=== PATIENT | female | born 1940 | race Caucasian/White ===

== ENCOUNTER 2016-07-24 13:53 | Inpatient (IN) ==
[2016-07-24] MEDS ORDERED: Acetaminophen 325 MG TABLET PO PRN (17:15)
[2016-07-24] MEDS ORDERED: Naloxone 0.4 MG/ML INJ IVP PRN (17:15)
[2016-07-24] MEDS ORDERED: Ondansetron 4 MG/2 ML VIAL IVP PRN (17:15)
[2016-07-24] MEDS ORDERED: Haloperidol Lactate 5 MG/ML VIAL IVP PRN (17:24)
--- NOTE | 2016-07-24 17:24 | Internal Med History&Physical ---
Date of Encounter: 07/24/16 Time of Encounter: 17:20 Assessment and Plan (1) Altered mental status Current visit: No Status: Acute Unclear etiology. I think most likely scenario is that she had metabolic derangements (hyponatremia?) from her bowel prep overnight and may have suffered a seizure followed by prolonged delirium. She intermittently is awake and agitated followed by episodes of somnolence. It is difficult to determine what is related to the IV ativan she was given, as this can worsen delirium. Family feels it would be very out of character for her to take any drugs last night. CVA is on the differential, however the waxing and waning symptoms (and reported normal strength and facial symmetry during awake episodes) makes this somewhat less likely, however it is concerning that her speech seems different. 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 - Repeat STAT labs to check electrolytes, bicarb, CK (unknown how long she was down) - Monitor carefully - Haldol for agitation as needed - Consult neurology for assistance in AM - Check drug screen Qualifiers: Altered mental status type: disorientation Qualified Code(s): R41.0 - Disorientation, unspecified (2) Hyponatremia Current visit: Yes Status: Acute Likely secondary to dehydration and bowel prep, unknown baseline Na level. Lowered seizure threshold in patient with likely low seizure threshold. Sodium can be artificially elevated immediately after seizure, so I am concerned her Na may actually be lower than it was initially noted to be (127) at outside ER. - Recheck Na 127 - patient received 1L NS at outside ER - Discussed case with nephrology front end web developer, Dr. Moreno, who recommended 500cc NS bolus followed by 100ccs/hr and Q4H Na checks overnight. - Check urine Na, osmolality, and measured serum osmolality Internal Medicine - H&P: HPI Chief complaint: Seizure like activity, altered mentation Admitted From: Emergency Dept Plans for Post Hospital Care: Home History of present illness: Ms. Aguila is a 75 year old female with history of seizure disorder secondary to traumatic brain injury, not on antiseizure meds, who presented to her local ER this morning after she was found on the floor of her home by her daughter. Her daughter is present at bedside and states that the patient's last known well was yesterday evening around 1730. The patient was taking a colonoscopy prep overnight last night, and her daughter helped her prepare the solution. The patient lives alone and is able to perform all ADLs typically. Her last seizure was approximately two years ago, and her typical seizure consists of tonic clonic activity. This morning when the patient's daughter got to her house to take her to the colonoscopy she found the front door unlocked, which is highly unusual. The patient was found on the floor of her bedroom having paddling hand motions and the daughter thought she was having a seizure. She was unable to respond to the daughter and EMS was called. When EMS arrived the patient yelled at them to "Get out!" and that is all she has said today. The daughter thought the seizure had resolved and she was post ictal so she had EMS leave. One hour later the patient was still nonverbal and had strange movements of her arms, so daughter called EMS to come back and she was taken to the ER for further evaluation. At the local ER ([place]) she was found to have hyponatremia (127) and low bicarb ( 18) with anion gap of 16. Prolactin was not checked. CT of the head was negative for hemorrhage or mass effect. She was reportedly agitated at the ER and was given two doses of IV ativan. On arrival to the obs unit at [facility] the patient was again agitated, climbed out of bed and urinated on the floor. It took three nurses to get her back into bed and then she fell back asleep. Her daughter thinks that she seemed a little more oriented this time when she stood up, but is still not speaking and is very confused. On reevaluation of the patient at 1800 she is awake and mildly agitated, attempting to climb out of bed. She will not follow commands, but is moving all four extremities and is able to make eye contact with me and clearly state "I don't want you." When I asked her if she would like me to leave she stated, "Yes." Past Med Surg Social Fam HX - Past Medical History Medical history: seizures, other Psychiatric history: no psych history - Past Surgical History Surgical History: hysterectomy, orthopedic, other - Social History Smoking Status: Never smoker Smokeless Tobacco Status: No Alcohol use: none Drug use: none - Family History Mother Living Status: Cause of : CHF Hx Family Cardiac Disorders: Yes Hx Family Endocrine Disorder: Yes (DM type 1) Father Living Status: Cause of : CHF Hx Family Cardiac Disorders: Yes Hx Family Endocrine Disorder: Yes (DM) Internal Medicine - H&P: Meds Beta-Carotene(A)-C,E/Selenium [Antioxidant Softgels] 1 cap PO DAILY 07/22/16 [ History] Cyanocobalamin (Vitamin B-12) [Vitamin B12] 1,000 mcg PO DAILY 07/22/16 [History ] Multivitamin [Multivitamins] 1 each PO DAILY 07/22/16 [History] Vitamin E 100 unit PO DAILY 07/22/16 [History] Allergies adhesive tape Allergy (Verified 07/22/16 14:18) Rash levetiracetam [From Keppra] Allergy (Verified 07/22/16 14:18) Blurry Vision milk Allergy (Verified 07/22/16 14:18) See Comments unknown reaction All Systems PM: A 10-system review of systems was performed and is negative for pertinent findings except as documented above in the HPI. - Constitutional Vitals: Temp Pulse Resp BP Pulse Ox 98.0 F 67 20 117/57 95 07/24/16 17:12 07/24/16 17:12 07/24/16 17:12 07/24/16 17:12 07/24/16 17:12 Exam: Patient somnolent, does not respond to voice commands. - Head Head exam: Present: atraumatic Internal Med - H&P Results - Labs CBC & Chem 7: 07/24/16 17:42 07/24/16 17:42
[2016-07-24 17:56] LABS: Basophils % 0.1 %; Hematocrit 36.6 % (35.3-44.9); Hemoglobin 12.6 g/dL (11.5-15.4); Immature Granulocytes % 0.6 % (0-4); Immature Platelets 1.5 % (1.1-6.1); Lymphocytes % 10.6 %; Mean Corpuscular HGB Conc 34.4 g/dL (31.6-35.5); Mean Corpuscular Hemoglobin 31.2 pg (28.0-33.3); Mean Corpuscular Volume 90.6 fL (83.0-100.0); Mean Platelet Volume 8.6 fL (9.4-12.4); Monocytes % 7.7 %; Platelet Count 271 K/mcL (140-400); Red Blood Count 4.04 M/mcL (3.82-4.97); Red Cell Distribution Width 12.6 % (11.5-14.5)
[2016-07-24 17:57] LABS: Lymphocytes # 1.3 K/mcL (0.6-4.6); Neutrophils # 10.2 K/mcL (1.6-8.9)
[2016-07-24 18:00] LABS: INR 1.1; Prothrombin Time 12.2 Seconds (9.4-12.1)
[2016-07-24 18:11] LABS: Alanine Aminotransferase 20 Units/L (0-55); Albumin 3.4 g/dL (3.5-5.0); Albumin/Globulin Ratio 1.3 (1.1-2.2); Alkaline Phosphatase 50 Units/L (38-126); Aspartate Amino Transferase 37 Units/L (5-34); BUN/Creatinine Ratio 10 (6-26); Bilirubin,Total 1.4 mg/dL (0.2-1.2); Blood Urea Nitrogen 6 mg/dL (7-20); Calcium 8.1 mg/dL (8.6-10.8); Carbon Dioxide 19 mEq/L (19-29); Chloride 98 mEq/L (98-109); Creatine Kinase 1075 Units/L (29-168); Globulin 2.7 g/dL (2.4-3.5); Glucose 100 mg/dL (70-99); Osmolality,Calculated 262 (280-300); Potassium 4.1 mEq/L (3.5-4.5); Sodium 127 mEq/L (136-145); Total Protein 6.1 g/dL (6.0-8.3); eGFR For African Americans > 60 (> 60); eGFR For Non-African Americans > 60 (> 60)
[2016-07-24] MEDS: 0.9 % Sodium Chloride 1,000 ML IVC SCH (18:18)
[2016-07-24] MEDS: Haloperidol Lactate 5 MG/ML VIAL IVP PRN (18:19)
[2016-07-24] MEDS ORDERED: 0.9 % Sodium Chloride 500 ML IVC ONE (19:31)
[2016-07-25] MEDS: 0.9 % Sodium Chloride 1,000 ML IVC SCH ×2 (05:10→15:42)
[2016-07-25 06:45] LABS: Hematocrit 35.4 % (35.3-44.9); Hemoglobin 12.3 g/dL (11.5-15.4); Mean Corpuscular HGB Conc 34.7 g/dL (31.6-35.5); Mean Corpuscular Hemoglobin 31.5 pg (28.0-33.3); Mean Corpuscular Volume 90.5 fL (83.0-100.0); Mean Platelet Volume 8.7 fL (9.4-12.4); Platelet Count 205 K/mcL (140-400); Red Blood Count 3.91 M/mcL (3.82-4.97); Red Cell Distribution Width 12.8 % (11.5-14.5)
[2016-07-25 06:51] LABS: BUN/Creatinine Ratio 9 (6-26); Calcium 7.8 mg/dL (8.6-10.8); Carbon Dioxide 17 mEq/L (19-29); Chloride 102 mEq/L (98-109); Glucose 88 mg/dL (70-99); Osmolality,Calculated 265 (280-300); Potassium 3.4 mEq/L (3.5-4.5); Sodium 129 mEq/L (136-145); eGFR For African Americans > 60 (> 60); eGFR For Non-African Americans > 60 (> 60)
[2016-07-25 06:52] LABS: Blood Urea Nitrogen 5 mg/dL (7-20)
--- NOTE | 2016-07-25 11:45 | Neurology - Consult Note ---
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 Has previous history of cerebral hemorrhage which may be related with increased risk of partial epilepsy. Has not been compliant with antiepileptic therapy due to concerns of cost. Will start her on Dilantin 500mg loading dose followed by dilantin 200mg daily with goal of dilantin level of 5- 10. Patient is still reluctant to take seizure meds and is expect not to be compliant with seizure medication. Does have other risk factor for TIA or encephalopathy so continue medical and supportive care and complete Carotid artery duplex may be useful. History of Present Illness Chief complaint: altered mental status HPI: Ms. Aguila is a 75 year old female with known seizure disorder noncompliant with antiepileptic therapy, history of cerebral hemorrhage who presented to ER with altered mental status. No witnessed seizures though. Patient known to me and has seen me few times in clinic for seizures. Has had few witnessed GTC by her daughter during 2012. Was on Keppra initially was doing good and then changed to dilantin (2013) due to inability to afford keppra. Started her on Dilantin 200mg daily during 2013. Never came back for follow up. Apparently discontinued medication on her own due to concerns of cost. has had EEG and MRI of brain during 2013. Has had episodic confusions occasional GTC as well. CT of head showed no acute intracranial abnormality Past Med Surg Social Fam HX - Past Medical History Medical history: seizures, other Psychiatric history: no psych history - Past Surgical History Surgical History: hysterectomy, orthopedic, other - Social History Smoking Status: Never smoker Smokeless Tobacco Status: No Alcohol use: none Drug use: none - Family History Mother Living Status: Cause of : CHF Hx Family Cardiac Disorders: Yes Hx Family Endocrine Disorder: Yes (DM type 1) Father Living Status: Cause of : CHF Hx Family Cardiac Disorders: Yes Hx Family Endocrine Disorder: Yes (DM) Medications and Allergies Beta-Carotene(A)-C,E/Selenium [Antioxidant Softgels] 1 cap PO DAILY 07/22/16 [ History] Cyanocobalamin (Vitamin B-12) [Vitamin B12] 1,000 mcg PO DAILY 07/22/16 [History ] Multivitamin [Multivitamins] 1 each PO DAILY 07/22/16 [History] Vitamin E 100 unit PO DAILY 07/22/16 [History] Allergies adhesive tape Allergy (Verified 07/22/16 14:18) Rash levetiracetam [From Keppra] Allergy (Verified 07/22/16 14:18) Blurry Vision milk Allergy (Verified 07/22/16 14:18) See Comments unknown reaction All Systems: A 10-system review of systems was performed and is negative for pertinent findings except as documented above in the HPI. Physical Examination - Vital Signs Vital Signs: Initial Vital Signs Temp Pulse Resp BP Pulse Ox 98.0 F 67 20 117/57 95 07/24/16 17:12 07/24/16 17:12 07/24/16 17:12 07/24/16 17:12 07/24/16 17:12 - Constitutional General appearance: comfortable - Neurologic Sensorimotor examination: intact Detailed motor examination: grossly full strength in all extremities Motor examination - right side: 5/5: deltoids, biceps, triceps, wrist flexion, wrist extension, template fitter, hip flexors, tibialis Anterior, quadriceps, toe extension (EHL), plantarflexion Motor examination - left side: 5/5: deltoids, biceps, triceps, wrist flexion, wrist extension, hip flexors, template fitter, quadriceps, tibialis Anterior, toe extension (EHL), plantarflexion Detailed sensory examination: intact Reflex and gait examination: intact Reflexes: Biceps: 1+, Triceps: 1+, Brachioradialis: 1+, Patella: 1+, Achilles: 1 + Mental Status Examination: awake, alert, oriented to person, oriented to place, oriented to time, follows commands appropriately, answers questions appropriately, no agnosia, no aphasia, no aproxia Cranial nerve examination: PERRL, EOMI, visual bowles intact, corneal reflexes brisk symmetrically, sensory to face intact, mastication intact, no facial asymmetry is present, no dysarthria, hearing is intact symmetrically, soft palate elevates bilaterally upon phonation, gag reflex intact, flexes SCM and trapezius muscles symmetrically with full power, tongue protrudes midline, no atrophy or facial fasiculations present Results - Laboratory Findings CBC and BMP: 07/25/16 06:18 07/25/16 06:18 Abnormal lab findings: Abnormal lab results MPV 8.7 fL (9.4-12.4) L 07/25/16 06:18 Neutrophils # 10.2 K/mcL (1.6-8.9) H 07/24/16 17:42 PT 12.2 Seconds (9.4-12.1) H 07/24/16 17:42 Sodium 129 mEq/L (136-145) L 07/25/16 06:18 Potassium 3.4 mEq/L (3.5-4.5) L 07/25/16 06:18 Carbon Dioxide 17 mEq/L (19-29) L 07/25/16 06:18 BUN 5 mg/dL (7-20) L 07/25/16 06:18 Creatinine 0.56 mg/dL (0.57-1.11) L 07/25/16 06:18 Serum Osmolality 270 mOsm/kg (280-300) L 07/24/16 19:12 Calculated Osmolality 265 (280-300) L 07/25/16 06:18 Calcium 7.8 mg/dL (8.6-10.8) L 07/25/16 06:18 Total Bilirubin 1.4 mg/dL (0.2-1.2) H 07/24/16 17:42 AST 37 Units/L (5-34) H 07/24/16 17:42 Creatine Kinase 1021 Units/L (29-168) H 07/25/16 06:18 Albumin 3.4 g/dL (3.5-5.0) L 07/24/16 17:42 Consult Discharge Plan - Plan Referrals: Ariel Reynolds MD [Partnered Physician] - NO,PCP [Primary Care Provider] -
--- NOTE | 2016-07-25 14:17 | Nephrology Consult Note ---
Date of Encounter: 07/25/16 Time of Encounter: 14:00 Assessment and Plan (1) Hyponatremia Current Visit: Yes Status: Resolved Suspect some chronicity with an acute component due to bowel prep Encouraged using slat with meals Continue saline for today Awaiting urine osmolality as well as sodium level (2) Altered mental status Current Visit: Yes Status: Acute Qualifiers: Altered mental status type: delirium Qualified Code(s): R41.0 - Disorientation, unspecified History of Present Illness - Reason for Consult Consult date: 07/25/16 hyponatremia Requesting physician: Chrystal Arnold - History of Present Illness 75 y o female with PMH of known seizure d/o with traumatic brain off medications presenting with altered mental status along with witnessed seizure after being down by daughter while undergoing bowel prep for pending colonoscopy. Per daughter does not eat much overall and hates sodium. sodium level noted at 127, no baseline available. No diuretics use. No nausea or vomiting just diarrhea from bowel prep. She is now up and alert and back to baseline. Past Med Surg Social Fam HX - Past Medical History Medical history: seizures, other Psychiatric history: no psych history - Past Surgical History Surgical History: hysterectomy, orthopedic, other - Social History Smoking Status: Never smoker Smokeless Tobacco Status: No Alcohol use: none Drug use: none - Family History Mother Living Status: Cause of : CHF Hx Family Cardiac Disorders: Yes Hx Family Endocrine Disorder: Yes (DM type 1) Father Living Status: Cause of : CHF Hx Family Cardiac Disorders: Yes Hx Family Endocrine Disorder: Yes (DM) Medications and Allergies Beta-Carotene(A)-C,E/Selenium [Antioxidant Softgels] 1 cap PO DAILY 07/22/16 [ History] Cyanocobalamin (Vitamin B-12) [Vitamin B12] 1,000 mcg PO DAILY 07/22/16 [History ] Multivitamin [Multivitamins] 1 each PO DAILY 07/22/16 [History] Vitamin E 100 unit PO DAILY 07/22/16 [History] Allergies adhesive tape Allergy (Verified 07/22/16 14:18) Rash levetiracetam [From Keppra] Allergy (Verified 07/22/16 14:18) Blurry Vision milk Allergy (Verified 07/22/16 14:18) See Comments unknown reaction Review of Systems All Systems: reviewed and no additional remarkable complaints except as stated ( 10 systems reviewed) Exam - Vital Signs Vital signs: Initial Vital Signs Temp Pulse Resp BP Pulse Ox 98.0 F 67 20 117/57 95 07/24/16 17:12 07/24/16 17:12 07/24/16 17:12 07/24/16 17:12 07/24/16 17:12 Vital Signs - Last 8 Hours Temp Pulse Resp BP Pulse Ox 07/25/16 11:12 98.2 F 60 18 156/80 98 07/25/16 10:47 94 07/25/16 07:29 98.3 F 66 18 162/82 92 Intake and Output 07/24/16 07/25/16 07/25/16 23:59 07:59 15:59 Intake Total 1000 / 1000 Balance 1000 / 1000 Intake: IV Fluids 1000 / 1000 0.9 % Sodium Chloride 1, 1000 / 1000 000 ML @ 100 mls/hr IVC . Q10H WING Rx#:[id number] Other: Stool Size Small Stool Consistency loose liquid Stool Color Brown Green # Voids 1 # Urine Diapers 1 1 # Bowel Movements 1 Weight 65.771 kg Blood Glucose* 82 97 - General Appearance Exam: NAD EENT: ATNC, mucous membranes dry Neck: no JVD, supple Respiratory: clear (ant bilat) Cardiology: no edema, normal S1, normal S2 Gastrointestinal: no tenderness, no guarding Integumentary: warm and dry Neurologic: no focal deficit Musculoskeletal: no deformities Psychiatric: mood/affect appropriate Results - Lab Results 07/25/16 06:18 07/26/16 05:17 Most recent lab results Calcium 7.8 mg/dL (8.6-10.8) L 07/25/16 06:18 Consult Discharge Plan - Plan Referrals: Ariel Reynolds MD [Partnered Physician] - NO,PCP [Primary Care Provider] -
--- NOTE | 2016-07-25 16:13 | Internal Med Progress Note ---
Date of Encounter: 07/25/16 Time of Encounter: 12:00 - Assessment and plan (1) Altered mental status Current Visit: Yes Status: Acute Assessment and plan: This is improving. Patient is clinically feeling better. Most likely due to underlying dehydration and possible acute on chronic hyponatremia. We will continue to monitor her condition in the hospital. If she continues to improve , she may be ready for discharge tomorrow. Will attempt to obtain a urine sample for analysis. CK levels trending downwards. Qualifiers: Altered mental status type: disorientation Qualified Code(s): R41.0 - Disorientation, unspecified (2) Essential hypertension Current Visit: Yes Status: Acute Assessment and plan: Patient having elevated blood pressure. No previous diagnosis of hypertension. Will monitor blood pressure for now and use hydralazine to control blood pressure of systolic greater than 160 mmHg. If remains persistently elevated, will start on antihypertensive regimen. (3) Hyponatremia Current Visit: Yes Status: Acute Assessment and plan: Patient may have chronic hyponatremia. Sodium levels have not significantly improved despite IV hydration. Nephrology following. (4) Seizure disorder Current Visit: Yes Status: Acute Assessment and plan: Neurology consult appreciated. Started on Dilantin. Will continue. No new episodes of seizures noted. - Subjective Interval history: patient is awake and alert. Feels better today. Denies any abdominal pain. No nausea or vomiting. Continuing to have some diarrhea. No new episodes of seizures - Constitutional Vitals: Temp Pulse Resp BP Pulse Ox 98.2 F 60 18 156/80 98 07/25/16 11:12 07/25/16 11:12 07/25/16 11:12 07/25/16 11:12 07/25/16 11:12 General appearance: Present: cooperative, A&O X 3, answers questions appropriately - Respiratory Respiratory exam: Present: CTAB. Absent: accessory muscle use, rales, rhonchi, wheezes - Cardiovascular Cardiovascular exam: Present: RRR, +S1, +S2. Absent: diastolic murmur, gallop, rubs, systolic murmur - GI/Abdominal GI/Abdominal exam: Present: normal bowel sounds, soft, no peritoneal signs. Absent: distended, tenderness - Neurological Exam Neurological exam: Present: alert, oriented X3, no focal deficits. Absent: facial droop, speech deficit - Psychiatric Psychiatric exam: Present: flat affect - Skin Skin exam: Present: dry, intact Internal Medicine: Result - Labs CBC & Chem 7: 07/25/16 06:18 07/25/16 06:18 Labs: Short CBC 07/24/16 07/25/16 Range/Units 17:42 06:18 WBC 12.6 H 10.0 (4.3-11.1) K/mcL Hgb 12.6 12.3 (11.5-15.4) g/dL Hct 36.6 35.4 (35.3-44.9) % Plt Count 271 205 (140-400) K/mcL Neutrophils # 10.2 H (1.6-8.9) K/mcL BMP 07/24/16 07/24/16 07/25/16 17:42 23:44 01:51 Sodium 127 L 127 L 125 L Potassium 4.1 Chloride 98 Carbon Dioxide 19 BUN 6 L Creatinine 0.63 Glucose 100 H Calcium 8.1 L 07/25/16 07/25/16 06:18 06:18 Sodium 129 L 128 L Potassium 3.4 L Chloride 102 Carbon Dioxide 17 L BUN 5 L Creatinine 0.56 L Glucose 88 Calcium 7.8 L Cardiac Enzymes 07/24/16 07/24/16 07/25/16 Range/Units 17:42 23:44 06:18 Troponin I 0.00 0.01 0.01 (0-0.03) ng/mL Liver Function 07/24/16 Range/Units 17:42 Total Bilirubin 1.4 H (0.2-1.2) mg/dL AST 37 H (5-34) Units/L ALT 20 (0-55) Units/L Alkaline Phosphatase 50 (38-126) Units/L Albumin 3.4 L (3.5-5.0) g/dL - ABG Interpretation ABG results: PT/INR, D-dimer PT 12.2 Seconds (9.4-12.1) H 07/24/16 17:42 Consult Discharge Plan - Plan Referrals: Ariel Reynolds MD [Partnered Physician] - NO,PCP [Primary Care Provider] - - Attending Attestation This document has been at least partially created by [employer] recognition technology by Dr. Blanco. Errors in grammar, wording or other phrases may exist. If errors are found after the documentation is signed, they will be addressed individually in the addendum section of this document when appropriate.
[2016-07-25] MEDS ORDERED: 0.9 % Sodium Chloride w KCl 20 MEQ/1,000 ML MLS IVC SCH (16:30)
[2016-07-25 23:45] LABS: Bilirubin,Urine Negative (Negative); Blood,Urine Negative (Negative); Clarity,Urine Clear (Clear); Color,Urine Yellow (Yellow); Glucose,Urine (UA) Normal (Normal); Ketones,Urine Negative (Negative); Leukocyte Esterase,Urine Small (Negative); Nitrite,Urine Negative (Negative); Protein,Urine Negative (Neg-Trace); Specific Gravity,Urine 1.007 (1.010-1.025); Urobilinogen,Urine Normal (Normal)
[2016-07-25 23:47] LABS: Bacteria,Urine Moderate per hpf (None-Few); Hyaline Casts,Urine None Seen per lpf (None-Few); RBC,Urine 0-3 per hpf (0-3); Squamous Epithelial Cell,Urine Many per lpf (None-Few)
[2016-07-26 05:38] LABS: BUN/Creatinine Ratio 10 (6-26); Blood Urea Nitrogen 6 mg/dL (7-20); Carbon Dioxide 19 mEq/L (19-29); Chloride 107 mEq/L (98-109); Creatine Kinase 1097 Units/L (29-168); Glucose 134 mg/dL (70-99); Osmolality,Calculated 286 (280-300); Potassium 3.7 mEq/L (3.5-4.5); eGFR For African Americans > 60 (> 60); eGFR For Non-African Americans > 60 (> 60)
[2016-07-26 05:40] LABS: Sodium 138 mEq/L (136-145)
[2016-07-26] MEDS ORDERED: Haloperidol Lactate 5 MG/ML VIAL ONE ×2 (06:45→10:11)
[2016-07-26] MEDS: Haloperidol Lactate 5 MG/ML VIAL IVP PRN (10:16)
[2016-07-26] MEDS ORDERED: *HR* LORazepam 2 MG/ML VIAL IVP ONE (11:45)
[2016-07-26] MEDS ORDERED: Water for inj. (sterile) 10 ML IV ONE (11:56)
--- NOTE | 2016-07-26 12:20 | Internal Med Progress Note ---
Date of Encounter: 07/26/16 Time of Encounter: 09:50 - Assessment and plan (1) Altered mental status Current Visit: Yes Status: Acute Assessment and plan: Overall this seems to be getting better but patient is having intermittent episodes of delirium. Urine analysis shows possible acute UTI. Will treat with Macrodantin. This could also be contributing to the patient's condition. We will continue to monitor for now Qualifiers: Altered mental status type: delirium Qualified Code(s): R41.0 - Disorientation, unspecified (2) Essential hypertension Current Visit: Yes Status: Chronic Assessment and plan: Patient's blood pressure persistently elevated. Will start patient on carvedilol. Continue to monitor blood pressure closely. Also has hydralazine intravenously as needed. (3) Hyponatremia Current Visit: Yes Status: Resolved (4) Seizure disorder Current Visit: Yes Status: Acute Assessment and plan: On Dilantin. No new episodes of seizures. - Subjective Interval history: Saw patient this morning. She was awake alert and oriented. Tolerating diet well. Did not complain of anything. However patient has been having intermittent episodes of agitation. - Constitutional Vitals: Temp Pulse Resp BP Pulse Ox 98.2 F 84 16 158/76 95 07/26/16 07:58 07/26/16 07:58 07/26/16 07:58 07/26/16 07:58 07/26/16 07:58 General appearance: Present: cooperative, A&O X 3, answers questions appropriately - Respiratory Respiratory exam: Present: CTAB. Absent: accessory muscle use, rales, rhonchi, wheezes - Cardiovascular Cardiovascular exam: Present: RRR, +S1, +S2. Absent: diastolic murmur, gallop, rubs, systolic murmur - GI/Abdominal GI/Abdominal exam: Present: normal bowel sounds, soft, no peritoneal signs. Absent: distended, tenderness - Extremities Exam Extremities exam: Present: warm, radial pulses palpable and symetrical. Absent : calf tenderness, cyanotic, pedal edema - Neurological Exam Neurological exam: Present: alert, CN II-XII intact, oriented X3, no focal deficits. Absent: facial droop, speech deficit Internal Medicine: Result - Labs CBC & Chem 7: 07/25/16 06:18 07/26/16 05:17 Labs: BMP 07/26/16 05:17 Sodium 138 D Potassium 3.7 Chloride 107 Carbon Dioxide 19 BUN 6 L Creatinine 0.61 Glucose 134 H Calcium 9.0 D Urine 07/25/16 Range/Units 23:30 Urine Color Yellow (Yellow) Urine Clarity Clear (Clear) Urine pH 7.0 (5.0-8.0) pH Units Ur Specific [place] 1.007 L (1.010-1.025) Urine Protein Negative (Neg-Trace) mg/dL Urine Glucose (UA) Normal (Normal) mg/dL - ABG Interpretation ABG results: PT/INR, D-dimer PT 12.2 Seconds (9.4-12.1) H 07/24/16 17:42 Consult Discharge Plan - Plan Referrals: Ariel Reynolds MD [Partnered Physician] - NO,PCP [Primary Care Provider] - - Attending Attestation This document has been at least partially created by [employer] recognition technology by Dr. Blanco. Errors in grammar, wording or other phrases may exist. If errors are found after the documentation is signed, they will be addressed individually in the addendum section of this document when appropriate.
--- NOTE | 2016-07-26 13:37 | Neurology Progress Note ---
Date of Encounter: 07/26/16 Time of Encounter: 13:34 Assessment and Plan (1) Seizure disorder Current Visit: Yes Status: Acute non-compliant with antiepileptic therapy. Will likely remain non-compliant. Will keep her on dilanitn 100mg bid. Goal of dilantin level 5-10. Does have baseline oppositional behavioral issue as well as baseline cognitive impairment. Patient lives alone and may benefit from assisted living. Please continue medical and supportive care. Subjective Principal diagnosis: altered mental status and possible seizure Interval history: patient seen and examined. Patient is hypersomnolence but appears to be resisting waking up. No recurrent seizures. Daughter at bed side and provided history of her seizures. Since last seen in my office 2014, patient had another convulsion type of seizure but she has remained non-compliant with any type of medications. Also has oppositional behavioral spells. May have baseline cognitive impairment. Is on dilantin 100mg bid. Patient appears sleeping but when i tried to wake her up she screamed but still remained still and kept her eyes closed. Objective - Constitutional Vitals: Temp Pulse Resp BP Pulse Ox 98.2 F 84 16 158/76 95 07/26/16 07:58 07/26/16 07:58 07/26/16 07:58 07/26/16 07:58 07/26/16 07:58 - Neurological Exam Sensorimotor examination: Present: intact Motor Examination: Present: grossly full strength in all extremities Motor examination - left side: 5/5: deltoids, biceps, triceps, wrist flexion, wrist extension, hip flexors, associate accountant, quadriceps, tibialis Anterior, toe extension (EHL), plantarflexion Sensation intact: Present: intact Reflex and gait examination: intact Mental Status Examination: Present: awake, alert, oriented to person, oriented to place, oriented to time, follows commands appropriately, answers questions appropriately, no agnosia, no aphasia, no aproxia Cranial nerve examination: Present: PERRL, EOMI, visual bowles intact, corneal reflexes brisk symmetrically, sensory to face intact, mastication intact, no facial asymmetry is present, no dysarthria, hearing is intact symmetrically, soft palate elevates bilaterally upon phonation, gag reflex intact, flexes SCM and trapezius muscles symmetrically with full power, tongue protrudes midline, no atrophy or facial fasiculations present Results - Laboratory Findings CBC and BMP: 07/25/16 06:18 07/26/16 05:17 Abnormal lab findings: Abnormal lab results MPV 8.7 fL (9.4-12.4) L 07/25/16 06:18 Neutrophils # 10.2 K/mcL (1.6-8.9) H 07/24/16 17:42 PT 12.2 Seconds (9.4-12.1) H 07/24/16 17:42 BUN 6 mg/dL (7-20) L 07/26/16 05:17 Glucose 134 mg/dL (70-99) H 07/26/16 05:17 POC Glucose 97 (58-89) H 07/25/16 11:55 Serum Osmolality 270 mOsm/kg (280-300) L 07/24/16 19:12 Total Bilirubin 1.4 mg/dL (0.2-1.2) H 07/24/16 17:42 AST 37 Units/L (5-34) H 07/24/16 17:42 Creatine Kinase 1097 Units/L (29-168) H 07/26/16 05:17 Albumin 3.4 g/dL (3.5-5.0) L 07/24/16 17:42 Ur Specific [place] 1.007 (1.010-1.025) L 07/25/16 23:30 Ur Leukocyte Esterase Small (Negative) H 07/25/16 23:30 Urine Microscopic WBC 5-15 per hpf (0-3) H 07/25/16 23:30 Ur Squamous Epith Cells Many per lpf (None-Few) H 07/25/16 23:30 Urine Bacteria Moderate per hpf (None-Few) H 07/25/16 23:30 Urine Osmolality 291 mOsm/kg (300-1090) L 07/25/16 22:18 Consult Discharge Plan - Plan Referrals: Ariel Reynolds MD [Partnered Physician] - NO,PCP [Primary Care Provider] -
--- NOTE | 2016-07-26 13:59 | Electrocardiograph Report ---
[place] [id number] Test Date: 2016-07-25 Pat Name: Julia Aguila Department: 115 Room: 3B41 Gender: Meatcutter: [facility] : 1940 Requested By: David Blanco Order Number: [id number] Reading MD: Prashant Finnegan MD Measurements Intervals [place] Rate: 59 P: 47 MD: 187 QRS: 29 QRSD: 157 T: -19 QT: 491 QTc: 490 Interpretive Statements SINUS BRADYCARDIA WITH OCCASIONAL SUPRAVENTRICULAR PREMATURE COMPLEXES RIGHT BUNDLE BRANCH BLOCK Electronically Signed On 07-26-2016 13:57:43 EDT by Prashant Finnegan MD
--- NOTE | 2016-07-26 15:56 | Nephrology Progress Note ---
Date of Encounter: 07/26/16 Time of Encounter: 16:00 - Assessment and Plan (1) Hyponatremia Status: Resolved Sodium normalized with IVF, can stop Will sign off, please reconsult prn (2) Altered mental status Status: Acute Qualifiers: Altered mental status type: delirium Qualified Code(s): R41.0 - Disorientation, unspecified Subjective Principal diagnosis: altered mental status and possible seizure Interval history: Pt seen and examined, no new issues. Objective - Vital Signs Vital signs: Vital Signs Temp Pulse Resp BP Pulse Ox 07/26/16 07:58 98.2 F 84 16 158/76 95 07/26/16 04:07 153/99 07/26/16 03:17 97.9 F 77 16 198/111 94 07/25/16 23:18 97.8 F 71 16 147/83 94 07/25/16 18:39 99.0 F 75 16 187/99 94 Intake and Output 07/25/16 07/26/16 07/26/16 23:59 07:59 15:59 Intake Total 300 / 300 240 / 240 Output Total 300 / 300 Balance 0 / 0 240 / 240 Intake: IV Fluids 300 / 300 0.9 % Sodium Chloride 1, 300 / 300 000 ML @ 100 mls/hr IVC . Q10H WING Rx#:[id number] Oral 240 / 240 Output: Urine 300 / 300 Other: Meal Breakfast Percent of Meal Consumed 75% Stool Size Smear Stool Consistency soft Stool Characteristics Normal for Patient Stool Color Brown # Voids 2 1 Weight 70.03 kg Patient Weight 07/26/16 23:59 Weight 70.03 kg - General Appearance General appearance: Present: chronically ill (NAD) EENT: Present: ATNC, mucous membranes moist Neck: Present: no JVD, supple Respiratory: Present: clear Cardiology: Present: no edema, normal S1, normal S2 Gastrointestinal: Present: no tenderness, no guarding Integumentary: Present: warm and dry Neurologic: Present: alert and oriented x3 Musculoskeletal: Present: no deformities Psychiatric: Present: mood/affect appropriate, cooperative - Lab 07/25/16 06:18 07/26/16 05:17 Most recent lab results Calcium 9.0 mg/dL (8.6-10.8) D 07/26/16 05:17 Urine Creatinine 14 mg/dL 07/25/16 23:30 Urine Sodium 114.0 mEq/L 07/25/16 22:18 Consult Discharge Plan - Plan Instructions: Chronic Hypertension (DC) Additional Instructions: Follow up with neurology as outpatient in 1-2 weeks Referrals: Ariel Reynolds MD [Primary Care Provider] - 08/03/16 3:30 pm Jena Valdez MD [Partnered Physician] - 08/20/16 10:30 am (Your appointment will be at the [facility] Office.) Prescriptions: Carvedilol [Coreg] 6.25 mg PO BIDWM #60 tablet Ciprofloxacin HCl [Cipro] 250 mg PO BID #20 tab Phenytoin ER [Dilantin ER] 100 mg PO BID #60 capsule
[2016-07-26] MEDS ORDERED: Nitrofurantoin (BID) 100 MG CAPSULE PO SCH (17:00)
[2016-07-26] MEDS: *HR* Heparin 5,000 UNIT/ML VIAL SQ SCH (17:25)
[2016-07-27] MEDS: *HR* Heparin 5,000 UNIT/ML VIAL SQ SCH (05:31)
--- NOTE | 2016-07-27 12:05 | Discharge Summary ---
Date of Encounter: 07/27/16 Time of Encounter: 10:30 - Discharge Diagnosis (1) Altered mental status Priority: Primary Status: Acute Qualifiers: Altered mental status type: delirium Qualified Code(s): R41.0 - Disorientation, unspecified (2) Essential hypertension Priority: Secondary Status: Chronic (3) Hyponatremia Priority: Secondary Status: Resolved (4) Seizure disorder Priority: Secondary Status: Acute - Discharge Medications Prescriptions: Carvedilol [Coreg] 6.25 mg PO BIDWM #60 tablet Ciprofloxacin HCl [Cipro] 250 mg PO BID #20 tab Phenytoin ER [Dilantin ER] 100 mg PO BID #60 capsule Home Medications: Beta-Carotene(A)-C,E/Selenium [Antioxidant Softgels] 1 cap PO DAILY 07/22/16 [ History] Cyanocobalamin (Vitamin B-12) [Vitamin B12] 1,000 mcg PO DAILY 07/22/16 [History ] Multivitamin [Multivitamins] 1 each PO DAILY 07/22/16 [History] Vitamin E 100 unit PO DAILY 07/22/16 [History] Carvedilol [Coreg] 6.25 mg PO BIDWM #60 tablet 07/27/16 [Rx] Ciprofloxacin HCl [Cipro] 250 mg PO BID #20 tab 07/27/16 [Rx] Phenytoin ER [Dilantin ER] 100 mg PO BID #60 capsule 07/27/16 [Rx] Allergies/Adverse Reactions: Allergies adhesive tape Allergy (Verified 07/22/16 14:18) Rash levetiracetam [From Keppra] Allergy (Verified 07/22/16 14:18) Blurry Vision milk Allergy (Verified 07/22/16 14:18) See Comments unknown reaction Procedures/tests Complete & Pending: Procedures Performed prior 72 hours Category Date Time Status ECG 12 lead ECG [ECG] Routine Y 07/25/16 11:09 Completed Date of admission: 07/26/16 14:56 Primary care physician: PCP NO Consults: 07/24/16 18:54 Consult to Nephrology [CONS] Routine Consulting Provider: Kidney Lyman/SALLY/MARY/ISIDRA Reason for Consult: Hyponatremia with seizure Call Completed: Yes 07/24/16 21:14 Consult to Neurology [CONS] Routine Consulting Provider: [facility] Reason for Consult: Patient with seizure like activity, not on antiseizure meds Call Completed: Yes 07/27/16 07:41 Consult to Occupational Therapy [CONS] Routine Comment: Evaluate, develop and implement POC Consult to Physical Therapy [CONS] Routine Comment: Evaluate, develop and implement POC Consult to Pr Intern [CONS] Routine Reason for SW Consult: Discharge planning Discharging clinician: David Blanco Anticipated date of discharge: 07/27/16 - Patient Status Disposition: Home, Self-Care Condition: Good Functional capacity at discharge: independent ambulation Overall status at discharge: patient is progressing back to baseline - Discharge Instructions Instructions: Chronic Hypertension (DC) Follow Up With: Ariel Reynolds MD [Partnered Physician] - 08/03/16 3:30 pm Jena Valdez MD [Partnered Physician] - 08/20/16 10:30 am (Your appointment will be at the [facility].) Additional Instructions: Follow up with neurology as outpatient in 1-2 weeks - Diet and Activity Activity: increase activity as tolerated Diet: low fat, low cholesterol, low salt diet Hospital course: Ms. Aguila is a 76 year old female sent with history of seizure disorder who was admitted here after presenting with altered mental status. Patient had been taking GoLYTELY for colonoscopy preparation and was found on the floor of her home by her daughter. On initial evaluation in the ER the patient remained confused and was concerned that she may have had a seizure. Patient has not had a seizure for 2 years prior to this and is not on any antiseizure medications. She was also found to have hyponatremia with sodium level of 127 and features suggestive of dehydration. She also had an elevation in her CK level suggesting mild rhabdomyolysis and this is resolving. She was treated with IV hydration. Nephrology and urology was consulted. Neurology recommended placing patient on Dilantin. Patient has not had any seizures during her stay here. Her sodium levels have improved and are now normal. Patient's mental status has improved also. Patient appears to also have an acute urinary tract infection. She has been placed on antibiotics for this. She will be discharged on oral ciprofloxacin in addition to Dilantin. Clinically, the patient is doing well enough to be discharged home today. She will follow up with her primary care provider for further management of her chronic medical conditions and also to get her colonoscopy rescheduled. Patient was also hypertensive and I have placed her on carvedilol. - Time Spent with Patient Total time spent providing and/or coordinating discharge services: Greater than 30 minutes (35 min) - Constitutional Vitals: Temp Pulse Resp BP Pulse Ox 98.0 F 64 17 129/70 94 07/27/16 11:46 07/27/16 11:46 07/27/16 11:46 07/27/16 11:46 07/27/16 11:46 General appearance: Present: cooperative, A&O X 3, no acute distress, answers questions appropriately - Respiratory Respiratory exam: Present: CTAB. Absent: accessory muscle use, rales, rhonchi, wheezes - Cardiovascular Cardiovascular exam: Present: RRR, +S1, +S2. Absent: diastolic murmur, gallop, rubs, systolic murmur - Extremities Exam Extremities exam: Present: warm, radial pulses palpable and symetrical. Absent : calf tenderness, cyanotic, pedal edema - Neurological Exam Neurological exam: Present: alert, oriented X3, no focal deficits. Absent: facial droop, speech deficit
[2016-07-27 14:35] LABS: Albumin 3.2 g/dL (3.5-5.0); Albumin/Globulin Ratio 1.1 (1.1-2.2); Bilirubin,Direct 0.3 mg/dL (0.0-0.5); Bilirubin,Indirect 0.6 mg/dL (0.0-1.2); Bilirubin,Total 0.9 mg/dL (0.2-1.2); Total Protein 6.2 g/dL (6.0-8.3)
[2016-07-27 15:33] VITALS: BP 176/91
== END 2016-07-27 17:30 | disposition home or self-care (01) | DRG 101 ==
LOC: 3BNU → SUATTDRO 15:24
PROVIDERS: ADMIT Internal Medicine; ATTEND Internal Medicine